=== PATIENT | male | born 1965 ===

== ENCOUNTER 2020-12-24 10:36 | Inpatient (IN) ==
[2020-12-24] MEDS ORDERED: Aspirin 81 MG TAB.CHEW PO ONE (11:21)
[2020-12-24] MEDS ORDERED: Ondansetron 4 MG/2 ML VIAL IVP ONE (11:40)
[2020-12-24 11:55] LABS: Basophils % 0.5 %; Eosinophils # 0.1 K/mcL (0.0-0.6); Eosinophils % 0.8 %; Hematocrit 44.9 % (37.5-50.1); Hemoglobin 14.4 g/dL (12.9-16.9); Immature Granulocytes % 0.2 % (0-4); Lymphocytes % 34.1 %; Mean Corpuscular HGB Conc 32.1 g/dL (31.6-35.5); Mean Corpuscular Hemoglobin 28.9 pg (28.0-33.3); Mean Platelet Volume 11.8 fL (9.4-12.4); Monocytes # 0.4 K/mcL (0.0-1.3); Monocytes % 6.3 %; Neutrophils # 3.4 K/mcL (1.6-8.9); Platelet Count 154 K/mcL (140-400); Red Blood Count 4.99 M/mcL (4.19-5.50); Red Cell Distribution Width 12.7 % (11.5-14.5); Segmented Neutrophils % 58.1 %; White Blood Count 5.9 K/mcL (4.3-11.1)
[2020-12-24 12:10] LABS: Prothrombin Time 11.2 Seconds (9.4-12.1)
[2020-12-24 12:12] LABS: Activated Partial Thrombo Time 27.1 Seconds (26.0-36.0)
[2020-12-24 12:13] LABS: D-Dimer < 215 ng/mLFEU (0-500)
[2020-12-24 12:21] LABS: Alanine Aminotransferase 25 Units/L (7-52); Albumin 4.4 g/dL (3.5-5.7); Albumin/Globulin Ratio 1.7 (1.1-2.2); Alkaline Phosphatase 74 Units/L (34-104); Aspartate Amino Transferase 24 Units/L (13-39); BUN/Creatinine Ratio 14 (6-26); Bilirubin,Direct 0.1 mg/dL (0.0-0.2); Bilirubin,Indirect 0.3 mg/dL (0.0-1.0); Bilirubin,Total 0.4 mg/dL (0.3-1.0); Blood Urea Nitrogen 10 mg/dL (6-20); Calcium 9.2 mg/dL (8.6-10.3); Carbon Dioxide 29 mEq/L (23-29); Chloride 102 mEq/L (98-107); Globulin 2.6 g/dL (2.4-3.5); Glucose 108 mg/dL (70-105); Lipase 22 Units/L (11-82); Osmolality,Calculated 282 (280-300); Potassium 3.5 mEq/L (3.5-5.1); Sodium 136 mEq/L (136-145); Troponin I 0.19 ng/mL (< 0.04); eGFR For African Americans > 60 (> 60); eGFR For Non-African Americans > 60 (> 60)
[2020-12-24] MEDS ORDERED: *HR* Heparin 5,000 UNIT/ML VIAL IVP ONE (12:46)
[2020-12-24] MEDS ORDERED: *HR* Heparin 5,000 UNIT/ML VIAL IVP PRN ×2 (12:46)
[2020-12-24] MEDS ORDERED: 0.9 % Sodium Chloride 1,000 ML IVC ONE (12:49)
[2020-12-24] MEDS ORDERED: Heparin 25,000UNIT/250ML 1/2NS 25,000 UNIT/250 ML IV.SOLN IVC SCH (13:00)
[2020-12-24] MEDS ORDERED: Ondansetron 4 MG/2 ML VIAL IVP PRN (14:23)
[2020-12-24] MEDS ORDERED: Acetaminophen 325 MG TABLET PO PRN (14:23)
[2020-12-24] MEDS ORDERED: Naloxone 0.4 MG/ML INJ IVP PRN (14:23)
[2020-12-24] MEDS ORDERED: Melatonin 3 MG TABLET PO PRN (14:23)
[2020-12-24] MEDS ORDERED: Nitroglycerin 0.4 MG TAB.SUBL SL PRN (14:40)
[2020-12-24] MEDS ORDERED: Perflutren Lipid Microsphere 1.3 ML in 0.9 % Sodium Chloride 8.7 ML IVP PRN ×2 (15:03→16:58)
[2020-12-24 15:18] LABS: Heparin anti-factor XA UFH 0.61 IU/mL (0.30-0.70); Prothrombin Time 11.3 Seconds (9.4-12.1)
[2020-12-24 15:28] LABS: Hematocrit 46.9 % (37.5-50.1); Hemoglobin 15.1 g/dL (12.9-16.9); Mean Corpuscular HGB Conc 32.2 g/dL (31.6-35.5); Mean Corpuscular Hemoglobin 29.3 pg (28.0-33.3); Mean Corpuscular Volume 90.9 fL (83.0-100.0); Platelet Count 164 K/mcL (140-400); Red Blood Count 5.16 M/mcL (4.19-5.50); Red Cell Distribution Width 12.7 % (11.5-14.5)
[2020-12-24 15:35] LABS: White Blood Count 9.7 K/mcL (4.3-11.1)
[2020-12-24] MEDS ORDERED: *HR* Heparin 10,000 UNIT/10 ML VIAL ONE (15:38)
[2020-12-24] MEDS ORDERED: Nitroglycerin 1,000 MCG/5 ML VIAL IV ONE (15:38)
[2020-12-24] MEDS ORDERED: Heparin 1,000 UNITS/500 mL 500 ML ONE (15:38)
[2020-12-24] MEDS ORDERED: 0.9 % Sodium Chloride 2,000 ML ONE (15:38)
[2020-12-24] MEDS ORDERED: ISOVUE-370 200 ML INFUS..BTL ONE ×2 (15:38→16:29)
[2020-12-24] MEDS ORDERED: *HR* Midazolam HCl 2 MG/2 ML VIAL ONE (15:50)
[2020-12-24] MEDS ORDERED: *HR* FentaNYL (PF) 100 MCG/2 ML VIAL ONE (15:51)
[2020-12-24] MEDS ORDERED: Tirofiban 12.5 MG/250ML 12.5 MG/250 ML BAG ONE (16:20)
[2020-12-24] MEDS ORDERED: *HR* Ticagrelor 90 MG TABLET ONE (16:47)
[2020-12-24] MEDS ORDERED: Tirofiban 12.5 MG/250ML 12.5 MG/250 ML BAG IVC SCH (17:00)
[2020-12-24] MEDS: *HR* Ticagrelor 90 MG TABLET PO SCH (21:26)
[2020-12-25 06:37] LABS: Hematocrit 40.9 % (37.5-50.1); Mean Corpuscular HGB Conc 32.8 g/dL (31.6-35.5); Mean Corpuscular Hemoglobin 29.6 pg (28.0-33.3); Mean Corpuscular Volume 90.3 fL (83.0-100.0); Mean Platelet Volume 11.9 fL (9.4-12.4); Platelet Count 146 K/mcL (140-400); Red Blood Count 4.53 M/mcL (4.19-5.50); White Blood Count 7.7 K/mcL (4.3-11.1)
[2020-12-25 06:41] LABS: Hemoglobin 13.4 g/dL (12.9-16.9)
[2020-12-25 07:03] LABS: BUN/Creatinine Ratio 14 (6-26); Blood Urea Nitrogen 11 mg/dL (6-20); Calcium 8.6 mg/dL (8.6-10.3); Carbon Dioxide 23 mEq/L (23-29); Chloride 108 mEq/L (98-107); Glucose 98 mg/dL (70-105); Osmolality,Calculated 285 (280-300); Potassium 3.9 mEq/L (3.5-5.1); Sodium 138 mEq/L (136-145); Troponin I 16.66 ng/mL (< 0.04); eGFR For African Americans > 60 (> 60); eGFR For Non-African Americans > 60 (> 60)
[2020-12-25] MEDS ORDERED: *HR* Heparin 5,000 UNIT/ML VIAL IVP ONE (07:27)
[2020-12-25] MEDS ORDERED: *HR* Heparin 5,000 UNIT/ML VIAL IVP PRN ×2 (07:27)
[2020-12-25] MEDS ORDERED: Heparin 25,000UNIT/250ML 1/2NS 25,000 UNIT/250 ML IV.SOLN IVC SCH (07:30)
[2020-12-25 08:17] LABS: Heparin anti-factor XA UFH < 0.04 IU/mL (0.30-0.70)
[2020-12-25 08:18] LABS: Prothrombin Time 11.3 Seconds (9.4-12.1)
[2020-12-25] MEDS: Aspirin 81 MG TAB.CHEW PO SCH (08:22)
[2020-12-25] MEDS: lisinopriL 5 MG TABLET PO SCH (08:22)
[2020-12-25] MEDS: *HR* Ticagrelor 90 MG TABLET PO SCH ×2 (08:22→19:57)
[2020-12-25 08:48] LABS: Hematocrit 43.8 % (37.5-50.1); Hemoglobin 14.1 g/dL (12.9-16.9); Mean Corpuscular HGB Conc 32.2 g/dL (31.6-35.5); Mean Corpuscular Hemoglobin 29.5 pg (28.0-33.3); Mean Corpuscular Volume 91.6 fL (83.0-100.0); Mean Platelet Volume 11.9 fL (9.4-12.4); Platelet Count 137 K/mcL (140-400); Red Blood Count 4.78 M/mcL (4.19-5.50); White Blood Count 7.6 K/mcL (4.3-11.1)
[2020-12-25] MEDS ORDERED: ROSUVASTATIN CALCIUM 20 MG PO SCH (09:00)
[2020-12-25 11:47] LABS: Chol/HDL Ratio 3.5 (0-4.9); Troponin I 12.09 ng/mL (< 0.04)
[2020-12-25] MEDS: *HR* Heparin 5,000 UNIT/ML VIAL SQ SCH (18:01)
[2020-12-26] MEDS ORDERED: Albumin 25% 25gram/100mL 25 GM/100 ML IV.SOLN IVPB ONE (00:09)
[2020-12-26] MEDS: *HR* Heparin 5,000 UNIT/ML VIAL SQ SCH ×2 (05:52→18:17)
[2020-12-26 06:24] LABS: Hemoglobin 14.1 g/dL (12.9-16.9); Mean Corpuscular HGB Conc 32.8 g/dL (31.6-35.5); Mean Corpuscular Hemoglobin 29.3 pg (28.0-33.3); Mean Corpuscular Volume 89.4 fL (83.0-100.0); Mean Platelet Volume 12.1 fL (9.4-12.4); Platelet Count 135 K/mcL (140-400); Red Blood Count 4.81 M/mcL (4.19-5.50); White Blood Count 7.3 K/mcL (4.3-11.1)
[2020-12-26 06:41] LABS: BUN/Creatinine Ratio 16 (6-26); Blood Urea Nitrogen 13 mg/dL (6-20); Carbon Dioxide 23 mEq/L (23-29); Chloride 105 mEq/L (98-107); Glucose 117 mg/dL (70-105); Osmolality,Calculated 285 (280-300); Potassium 3.9 mEq/L (3.5-5.1); Sodium 137 mEq/L (136-145); eGFR For African Americans > 60 (> 60); eGFR For Non-African Americans > 60 (> 60)
[2020-12-26] MEDS: lisinopriL 5 MG TABLET PO SCH (09:00)
[2020-12-26] MEDS: *HR* Ticagrelor 90 MG TABLET PO SCH ×2 (11:00→20:29)
[2020-12-26] MEDS: Aspirin 81 MG TAB.CHEW PO SCH (11:01)
[2020-12-26] MEDS ORDERED: *HR* Heparin 10,000 UNIT/10 ML VIAL ONE (13:16)
[2020-12-26] MEDS ORDERED: ISOVUE-370 200 ML INFUS..BTL ONE ×2 (13:16→14:00)
[2020-12-26] MEDS ORDERED: 0.9 % Sodium Chloride 2,000 ML ONE (13:16)
[2020-12-26] MEDS ORDERED: Nitroglycerin 1,000 MCG/5 ML VIAL IV ONE (13:16)
[2020-12-26] MEDS ORDERED: Heparin 1,000 UNITS/500 mL 500 ML ONE (13:16)
[2020-12-26] MEDS ORDERED: *HR* Midazolam HCl 2 MG/2 ML VIAL ONE (13:33)
[2020-12-26] MEDS ORDERED: Tirofiban 12.5 MG/250ML 12.5 MG/250 ML BAG ONE (13:33)
[2020-12-26] MEDS ORDERED: *HR* FentaNYL (PF) 100 MCG/2 ML VIAL ONE (13:33)
[2020-12-26] MEDS ORDERED: Tirofiban 12.5 MG/250ML 12.5 MG/250 ML BAG IVC SCH (16:00)
[2020-12-27] MEDS: *HR* Heparin 5,000 UNIT/ML VIAL SQ SCH (05:34)
[2020-12-27] MEDS: *HR* Ticagrelor 90 MG TABLET PO SCH (09:50)
[2020-12-27] MEDS: Aspirin 81 MG TAB.CHEW PO SCH (09:50)
[2020-12-27 10:49] VITALS: BP 99/61
== END 2020-12-27 13:35 | disposition home or self-care (01) | DRG 247 ==
LOC: EMEROOARM 10:36 → 3BNU 10:36 → SUATTDRO 15:15 → 3BNU 15:18
PROVIDERS: ADMIT Internal Medicine; ATTEND Internal Medicine